=== PATIENT | female | born 1985 | race American Indian/Alaskan Native ===

== ENCOUNTER 2017-09-19 15:52 | Emergency (ER) | payer MEDICAID ==
[2017-09-19 17:53] LABS: Basophils % (Auto) 0.6 % (0.0-1.8); Eosinophils # (Auto) 0.2 K/mm3 (0.0-0.4); Eosinophils % (Auto) 2.9 % (0.0-4.3); Hematocrit 39.4 % (30.3-42.9); Lymphocytes # (Auto) 3.3 K/mm3 (1.2-5.4); Lymphocytes % (Auto) 40.9 % (13.4-35.0); Mean Corpuscular HGB Conc 33 % (30-34); Mean Corpuscular Hemoglobin 30 pg (28-32); Mean Corpuscular Volume 90 fl (79-97); Monocytes # (Auto) 0.5 K/mm3 (0.0-0.8); Monocytes % (Auto) 6.6 % (0.0-7.3); Platelet Count 350 K/mm3 (140-440); Red Cell Distribution Width 15.4 % (13.2-15.2)
[2017-09-19 18:09] LABS: BUN/Creatinine Ratio 12; Blood Urea Nitrogen 7 mg/dL (7-17); Calcium 9.7 mg/dL (8.4-10.2); Hemolysis Index 3
[2017-09-19 20:44] VITALS: BP 134/72
[2017-09-19] MEDS ORDERED: BOOSTRIX IM ONE (21:33)
[2017-09-19] MEDS ORDERED: CLEOCIN IM ONE (21:33)
--- NOTE | 2017-09-19 21:33 | Emergency Department Report ---
Abscess Boil HPI - HPI Chief Complaint: Skin/Abscess/Foreign Body Stated Complaint: FACIAL ABSCESS Time Seen by Provider: 09/19/17 20:54 Duration: 1 Week Location: Other (left face) Severity: Mild History: Yes Pain (3/10), No Fever, No Purulent Drainage, No Numbness, No Foreign Body, No Previous History, No Insect Bite HPI: This is a 31-year-old female here reports that she has swelling and pain 3/ 10, feels sore and sharp to the left facial area times one week. Denies any fever or chills. Denies any nausea or vomiting. Cause is unknown. Worse with chewing and talking. No alleviating factor. She says she took some antibiotic she does not name of it that she had at home but it didn't help. No pain medication taken. Denies any shortness of breath, chest pain, swelling of lips or tongue. Denies any neck pain or stiffness. tetanus vaccine is not up-to- date. Denies any coughing Home Medications: Previous Rx's Medication Instructions Recorded Last Taken Type Ibuprofen [Motrin] 800 mg PO Q8HR PRN #12 tablet 09/19/17 Unknown Rx Sulfamethoxazole/Trimethoprim 1 each PO BID 10 Days #20 tablet 09/19/17 Unknown Rx [Bactrim DS TAB] Allergies/Adverse Reactions: Allergies Allergy/AdvReac Type Severity Reaction Status Date / Time No Known Allergies Allergy Unverified 09/19/17 16:15 ED Review of Systems ROS: Stated complaint: FACIAL ABSCESS Other details as noted in HPI Constitutional: denies: chills, fever ENT: denies: ear pain, throat pain, congestion Respiratory: denies: cough, shortness of breath, SOB with exertion, SOB at rest , stridor, wheezing Cardiovascular: denies: chest pain, palpitations Gastrointestinal: denies: nausea, vomiting Musculoskeletal: denies: back pain, arthralgia Skin: other (Boil to face). denies: rash, lesions Neurological: denies: headache ED Past Medical Hx - Past Medical History Previous Medical History?: No - Surgical History Past Surgical History?: No - Family History Family history: no significant - Social History Smoking Status: Current Every Day Smoker Substance Use Type: Alcohol - Medications Home Medications: Home Medications Medication Instructions Recorded Confirmed Last Taken Type Ibuprofen [Motrin] 800 mg PO Q8HR PRN #12 tablet 09/19/17 Unknown Rx Sulfamethoxazole/Trimethoprim 1 each PO BID 10 Days #20 tablet 09/19/17 Unknown Rx [Bactrim DS TAB] ED Abscess Boil Physical Exam - Exam General: Vital signs noted. No distress. Alert and acting appropriately. This is a 31-year-old female well-nourished well-developed in no acute distress. Front/Back of Body, Lg (Color): 1 - 2 cm indurated, fluctuant area to the facial area aligned with nasal septum. Tender to palpate. Small opening to the Center. This appears to be infected hair follicle. No erythema. Patient received 0.5 mL emergency room without any adverse reaction Size: 2 cm Exam: Yes Tenderness (abscess the left facial area), Yes Fluctuance, Yes Normal Neurologic Exam (alert and oriented 3, normal gait.), Yes Normal Circulation ( no clubbing, cyanosis or edema to extremities. Pulses 2+ systolic extremities.) , No Surrounding Cellulites/Erythema, No Lymphangitis, No Crepitation, No Heart Murmur (S1, S2 regular rate) I & D Note - I & D Note I & D Note: Incision and drainage-2 cm indurated, fluctuant area without any erythema to left facial area. Incision and drainage under sterile procedure. Area cleansed with iodine followed by normal saline. 3 mL of 1% lidocaine without epi instilled to side. #18-gauge needle used to make small opening and approximately 5 mL of purulent drainage from site. Minimal induration after drainage. Area cleansed with iodine followed by normal saline and Band-Aid dressing placed the site. She tolerated procedure well ED Course Vital Signs 09/19/17 09/19/17 16:10 20:43 Temperature 99.4 F 99 F Pulse Rate 72 83 Respiratory 18 16 Rate Blood Pressure 116/88 Blood Pressure 134/72 [Right] O2 Sat by Pulse 100 100 Oximetry - Reevaluation(s) Reevaluation #1: 09/19/17 23:14 Patient received 0.5 mL injection and minimize then 600 mg I am emergency room without any adverse reaction. Critical care attestation.: If time is entered above; I have spent that time in minutes in the direct care of this critically ill patient, excluding procedure time. ED Medical Decision Making - Lab Data Result diagrams: 09/19/17 16:45 09/19/17 16:45 Lab Results 09/19/17 09/19/17 Range/Units 16:45 16:45 WBC 8.2 (4.5-11.0) K/mm3 RBC 4.40 (3.65-5.03) M/mm3 Hgb 13.0 (10.1-14.3) gm/dl Hct 39.4 (30.3-42.9) % MCV 90 (79-97) fl MCH 30 (28-32) pg MCHC 33 (30-34) % RDW 15.4 H (13.2-15.2) % Plt Count 350 (140-440) K/mm3 Lymph % (Auto) 40.9 H (13.4-35.0) % [place] % (Auto) 6.6 (0.0-7.3) % Eos % (Auto) 2.9 (0.0-4.3) % Baso % (Auto) 0.6 (0.0-1.8) % Lymph # 3.3 (1.2-5.4) K/mm3 [place] # 0.5 (0.0-0.8) K/mm3 Eos # 0.2 (0.0-0.4) K/mm3 Baso # 0.0 (0.0-0.1) K/mm3 Seg Neutrophils % 49.0 (40.0-70.0) % Seg Neutrophils # 4.0 (1.8-7.7) K/mm3 Sodium 139 (137-145) mmol/L Potassium 4.2 (3.6-5.0) mmol/L Chloride 103.1 (98-107) mmol/L Carbon Dioxide 23 (22-30) mmol/L Anion Gap 17 mmol/L BUN 7 (7-17) mg/dL Creatinine 0.6 L (0.7-1.2) mg/dL Estimated GFR > 60 ml/min BUN/Creatinine Ratio 12 % Glucose 84 (65-100) mg/dL Calcium 9.7 (8.4-10.2) mg/dL - Medical Decision Making ED course: This is a 31-year-old female here complaining of left facial abscess 1 week. She is unaware of cause. Tetanus vaccine is not up-to-date. Patient is here to be evaluated. Patient examined by myself and found to have abscess to left facial area with positive induration and fluctuance. She has been putting warm compresses to the site so. His soft to be drained. Area tender to palpate. She has no fever. CBC and BMP is stable. I discussed the patient diagnosis, laboratory results. She voiced understanding. Incision and draining procedure done please refer to procedure note for details. Abscess left face status post incision and drainage-Boostrix 0.5 mL IM, clindamycin 600 mg IM. Patient started home on ibuprofen and Bactrim DS Patient educated on diagnosis, treatment plan, medication, incision and drainage procedure. She is also educated in acute wound care. She voiced understanding. Condition discharged home from emergency room in stable condition. Her vital signs are stable she is afebrile and says she feels a lot better. Express large amount of pus from the facial abscess. Very minimal induration. I encouraged her to continue placing warm compresses to affected site and I also encouraged her to return to emergency room if area increased in size, increasing pain, fever and/or chills, increased drainage. Patient discharged Patient discharged home with prescription for Bactrim and ibuprofen. She is to follow-up with primary care physician in 2 days - Differential Diagnosis cysts, mass, cellulitis, abscess ED Disposition Clinical Impression: Facial abscess, Encounter for incision and drainage procedure Disposition: TO HOME OR SELFCARE Is pt being admited?: No Does the pt Need Aspirin: No Condition: Stable Instructions: Abscess Incision and Drainage (ED), Acute Wound Care (ED) Additional Instructions: apply warm compresses to the left facial area 3-4 times a day. take Motrin as prescribed Take Bactrim as prescribed If area of abscess worsens, increase in pain and increase in swelling please return to the emergency room [facility] Follow-up with primary care physician in 3 days if he do not have a primary care physician follow-up at [facility] Prescriptions: Ibuprofen [Motrin] 800 mg PO Q8HR PRN #12 tablet PRN Reason: pain Sulfamethoxazole/Trimethoprim [Bactrim DS TAB] 1 each PO BID 10 Days #20 tablet Referrals: PRIMARY CARE, [Primary Care Provider] - 09/22/17 [facility] [Outside] - 09/22/17 Forms: Accompanied Note, Work/School Release Form(ED)
[2017-09-19] MEDS ORDERED: XYLOCAINE 1% MPF 5 mL INFILTRATI ONE (21:34)
== END 2017-09-19 23:36 | disposition home or self-care (01) ==
LOC: ED 15:52
DX: L02.01 Cutaneous abscess of face (principal); F17.200 Nicotine dependence, unspecified, uncomplicated
CPT/HCPCS: 36415; 80048; 85025; 90471; 90715; 96372

== ENCOUNTER 2018-11-09 16:00 | Emergency (ER) | payer MEDICAID ==
[2018-11-09 16:12] VITALS: BP 115/72
--- NOTE | 2018-11-09 16:17 | Event Note ---
ED Screening Note Date of service: 11/09/18 Time: 16:09 ED Screening Note: 33 y o presents eith left sided facial cheek painful swelling x 1 week This initial assessment/diagnostic orders/clinical plan/treatment(s) is/are subject to change based on patients health status, clinical progression and re- assessment by fellow clinical providers in the ED. Further treatment and workup at subsequent clinical providers discretion. Patient/guardian urged not to elope from the ED as their condition may be serious if not clinically assessed and managed. Initial orders include: ACC eval I &D
[2018-11-09] MEDS ORDERED: XYLOCAINE 1% MPF 5 mL INFILTRATI ONE (19:27)
[2018-11-09] MEDS ORDERED: BACTRIM DS PO ONE (19:27)
[2018-11-09] MEDS ORDERED: IBUPROFEN PO ONE (19:27)
--- NOTE | 2018-11-09 21:04 | Emergency Department Report ---
ED General Adult HPI - General Chief complaint: Skin/Abscess/Foreign Body Stated complaint: KNOT ON FACE Time Seen by Provider: 11/09/18 16:09 Source: patient Mode of arrival: Ambulatory Limitations: No Limitations - History of Present Illness Initial comments: Patient is a 33-year-old -[place] female with a past medical history presents to the ED with complaint of acute onset persistent painful swelling and erythematous fluctuant maculopapular rash on the left cheek for the last 1 week, worse in the last 2 days. Patient denies fever, chills, nausea, vomiting, headache, dizziness, neck pain or vision changes. MD Complaint: left cheek cellulitis -: Sudden, week(s) (1) Location: face (left cheek) Radiation: non-radiation Severity scale (0 -10): 3 Quality: aching, sharp Consistency: constant Improves with: none Worsens with: none Associated Symptoms: denies other symptoms. denies: confusion, chest pain, cough, diaphoresis, loss of appetite, malaise, nausea/vomiting, seizure, syncope Treatments Prior to Arrival: none - Related Data Previous Rx's Medication Instructions Recorded Last Taken Type Ibuprofen [Motrin] 800 mg PO Q8HR PRN #12 tablet 09/19/17 Unknown Rx Sulfamethoxazole/Trimethoprim 1 each PO BID 10 Days #20 tablet 09/19/17 Unknown Rx [Bactrim DS TAB] Ibuprofen [Motrin] 800 mg PO Q8HR PRN #20 tablet 11/09/18 Unknown Rx Mupirocin [Bactroban 2% OINT] 1 applic TP TID #1 tube 11/09/18 Unknown Rx Sulfamethoxazole/Trimethoprim 1 each PO Q12H #20 tablet 11/09/18 Unknown Rx [Bactrim DS TAB] Allergies Allergy/AdvReac Type Severity Reaction Status Date / Time No Known Allergies Allergy Unverified 09/19/17 16:15 ED Review of Systems ROS: Stated complaint: KNOT ON FACE Other details as noted in HPI Constitutional: denies: chills, fever Eyes: denies: eye pain, eye discharge, vision change ENT: other (swollen painful erythematous rash on left cheek). denies: ear pain, throat pain Respiratory: denies: cough, shortness of breath, wheezing Cardiovascular: denies: chest pain, palpitations Endocrine: no symptoms reported Gastrointestinal: denies: abdominal pain, nausea, diarrhea Genitourinary: denies: urgency, dysuria, discharge Musculoskeletal: denies: back pain, joint swelling, arthralgia Skin: denies: rash, lesions Neurological: denies: headache, weakness, paresthesias Psychiatric: denies: anxiety, depression Hematological/Lymphatic: denies: easy bleeding, easy bruising ED Past Medical Hx - Past Medical History Previous Medical History?: No - Surgical History Past Surgical History?: No - Social History Smoking Status: Current Some Day Smoker Substance Use Type: None - Medications Home Medications: Home Medications Medication Instructions Recorded Confirmed Last Taken Type Ibuprofen [Motrin] 800 mg PO Q8HR PRN #12 tablet 09/19/17 Unknown Rx Sulfamethoxazole/Trimethoprim 1 each PO BID 10 Days #20 tablet 09/19/17 Unknown Rx [Bactrim DS TAB] Ibuprofen [Motrin] 800 mg PO Q8HR PRN #20 tablet 11/09/18 Unknown Rx Mupirocin [Bactroban 2% OINT] 1 applic TP TID #1 tube 11/09/18 Unknown Rx Sulfamethoxazole/Trimethoprim 1 each PO Q12H #20 tablet 11/09/18 Unknown Rx [Bactrim DS TAB] ED Physical Exam - General Limitations: No Limitations General appearance: alert, in no apparent distress - Head Head exam: Present: atraumatic, normocephalic, normal inspection - Eye Eye exam: Present: normal appearance, PERRL, EOMI Pupils: Present: normal accommodation - ENT ENT exam: Present: normal exam, normal orophraynx, mucous membranes moist, TM's normal bilaterally, normal external ear exam, other (Swollen tender erythematous fluctuant rash on left cheek) - Neck Neck exam: Present: normal inspection, full ROM. Absent: tenderness, meningismus, lymphadenopathy - Respiratory Respiratory exam: Present: normal lung sounds bilaterally. Absent: respiratory distress, wheezes, rales, rhonchi, stridor, chest wall tenderness, accessory muscle use, prolonged expiratory - Cardiovascular Cardiovascular Exam: Present: regular rate, normal rhythm, normal heart sounds. Absent: systolic murmur, diastolic murmur, rubs, gallop - GI/Abdominal GI/Abdominal exam: Present: soft, normal bowel sounds. Absent: tenderness, guarding, rebound, hyperactive bowel sounds, hypoactive bowel sounds - Rectal Rectal exam: Present: deferred - Extremities Exam Extremities exam: Present: normal inspection, full ROM, normal capillary refill - Back Exam Back exam: Present: normal inspection, full ROM. Absent: tenderness, CVA tenderness (L), muscle spasm, paraspinal tenderness - Neurological Exam Neurological exam: Present: alert, oriented X3, CN II-XII intact, normal gait, reflexes normal - Psychiatric Psychiatric exam: Present: normal affect, normal mood - Skin Skin exam: Present: warm, dry, intact, rash (erythematous swollen tender fluctuant maculopapular rash on left cheek), erythema ED Course Vital Signs 11/09/18 16:10 Temperature 98.3 F Pulse Rate 75 Respiratory 20 Rate Blood Pressure 115/72 O2 Sat by Pulse 100 Oximetry - Reevaluation(s) Reevaluation #1: 11/09/18 21:06 This is a 33-year-old female who presented to the ED with swollen and erythematous maculopapular rash with fluctuance on the left cheek. In the ED, patient is alert and oriented 3 and is not in distress with normal vital signs. Patient was to pain and also given initial oral antibiotics. The left cheek abscess was incised and drained per protocol and the patient tolerated the procedure well. Patient discharged home on pain medications and antibiotics and advised to follow-up with her primary care physician in 7-10 days for reevaluation or return to the ED immediately if symptoms get worse. - I & D Left Cheek Type of Procedure: Simple Site: left cheek Blade Size: 11 I & D Procedure: betadine prep, sterile drapes applied, sterile dressing applied, gauze wick placed Progress: Patient reports the procedure well. The patient discharged home on pain medications and antibiotics and advised follow-up with her primary care physician in 7-10 days for reevaluation or return to the ED immediately if symptoms get worse. ED Medical Decision Making - Medical Decision Making This is a 33-year-old female who presented to the ED with swollen and erythematous maculopapular rash with fluctuance on the left cheek. In the ED, patient is alert and oriented 3 and is not in distress with normal vital signs. Patient was to pain and also given initial oral antibiotics. The left cheek abscess was incised and drained per protocol and the patient tolerated the procedure well. Patient discharged home on pain medications and antibiotics and advised to follow-up with her primary care physician in 7-10 days for reevaluation or return to the ED immediately if symptoms get worse. - Differential Diagnosis folliculitis, cellulitis, abscess Critical care attestation.: If time is entered above; I have spent that time in minutes in the direct care of this critically ill patient, excluding procedure time. ED Disposition Clinical Impression: Cellulitis of face, Acute folliculitis Disposition: TO HOME OR SELFCARE Is pt being admited?: No Does the pt Need Aspirin: No Condition: Stable Instructions: Cellulitis (ED), Folliculitis (ED) Additional Instructions: Take medications with food, drink plenty of fluids and follow up with your Primary Care Physician as advised. Return to the ED immediately if symptoms get worse Prescriptions: Sulfamethoxazole/Trimethoprim [Bactrim DS TAB] 1 each PO Q12H #20 tablet Mupirocin [Bactroban 2% OINT] 1 applic TP TID #1 tube Ibuprofen [Motrin] 800 mg PO Q8HR PRN #20 tablet PRN Reason: Pain , Severe (7-10) Referrals: PRIMARY CARE, [Primary Care Provider] - 3-5 Days Time of Disposition: 21:02 Print Language: ARMENIAN
== END 2018-11-09 21:10 | disposition home or self-care (01) ==
LOC: ED 16:00
DX: L03.211 Cellulitis of face (principal); L73.8 Other specified follicular disorders; F17.200 Nicotine dependence, unspecified, uncomplicated; Z79.899 Other long term (current) drug therapy
CPT/HCPCS: 99282